=== PATIENT | female | born 1945 | race Hispanic/Latino ===

== ENCOUNTER 2022-12-21 16:26 | Emergency (ER) | payer MEDICARE ==
[~2022-12-21] VITALS: Ht 160 cm; Wt 68.0 kg
[2022-12-21 16:39] VITALS: BP 146/66
[2022-12-21] MEDS ORDERED: LIDOP TP (19:04)
[2022-12-21] MEDS: ACETAMINOPHEN WITH CODEINE 1 TAB TAB PO ONE (19:18)
== END 2022-12-21 19:26 | disposition home or self-care (01) ==
LOC: EDH 16:26
DX: M54.50 Low back pain, unspecified (principal); I10 Essential (primary) hypertension; E78.00 Pure hypercholesterolemia, unspecified; E11.9 Type 2 diabetes mellitus without complications; Z88.8 Allergy status to other drugs, medicaments and biological substances; Z90.710 Acquired absence of both cervix and uterus; W01.0XXA Fall on same level from slipping, tripping and stumbling without subsequent striking against object, initial encounter; Y93.89 Activity, other specified; Y92.89 Other specified places as the place of occurrence of the external cause; Y99.8 Other external cause status
CPT/HCPCS: 72202